=== PATIENT | female | born 1980 | race Caucasian/White ===

== ENCOUNTER → 2016-06-19 | Outpatient (CLI) | payer BC, MEDICARE ==
[~2016-06-19] VITALS: Ht 162.6 cm; Wt 54.0 kg
[~2016-06-19] MED LIST: ACET500T33 PO; CALC0.5C PO; CONTRAST GIVEN MC PRN; HYDR-971 PO; IOHEXOL 300 MG/ML 50 ML VIAL. IART ONE; IOHEXOL 300 MG/ML 50 ML VIAL. ONE; LABE100T3 PO; SENN1TAB70 PO; SODI650T PO
[2016-06-19 10:01] VITALS: BP 152/87
--- NOTE | 2016-06-19 10:26 | PDOC ---
Exam Hose Wrapper Hose Wrapper Jennifer Fabrication Department Supervisor Fabrication Department Supervisor Elaine Garrett Pre-Procedure Diagnosis Pre-Procedure Diagnosis ESRD. Nonfunctioning PDC. Post-Procedure Diagnosis Post-Procedure Diagnosis Same Procedure Performed Procedure Performed Fluoro guided PDC check Type of Anesthesia Type of Anesthesia None Estimated Blood Loss EBL: None Condition of Patient Condition of Patient Syable. No apparent complication. Disposition Disposition Discharge from [facility]. F/u with Renal. Unable to restore function to occluded PDC--cannot flush or aspirate. Full report to follow. SHANNA SHARMA MD Jun 19, 2016 10:26
--- NOTE | 2016-06-19 10:32 | PDOC1 ---
History and Physical Date of Procedure Date of Admission 06/19/16 Procedure Procedure Fluoro guided PDC check Indication Indication ESRD. Nonfunctioning PDC Past Medical History Past Medical History See Nursing pre procedure PMH Past Surgical History Past Surgical History See Nursing Pre procedure PSH Current Medications Current Medications Current Medications Iohexol 50 ml 50 ml STK-MED ONCE .ROUTE ; Start 06/19/16 at 09:35; Stop at 09:36; Status DC Heparin Sodium/ Sodium Chloride 500 ml @ As Directed STK-MED ONCE .ROUTE ; Start 06/19/16 at 09:36; Stop 06/19/16 at 09:37; Status DC Heparin Sodium/ Sodium Chloride 1,000 unit 1X ONCE IART Last administered on t 10:16; Start 06/19/16 at 10:15; Stop 06/19/16 at 10:16; Status DC Iohexol (Omnipaque 300 Mg/ml) 50 ml 1X ONCE IART ; Start 06/19/16 at 10:15; Stop 06/19/16 at 10:16; Status DC Info (Do NOT chart on this entry -- for MONITORING) 1 each PRN DAILY PRN MC SEE COMMENTS; Start 06/19/16 at 10:15; Stop 06/21/16 at 10:14 Active Scripts Active Reported Sodium Bicarbonate 650 Mg Tablet 2 Tab PO BID Allergies Allergies: Coded Allergies: Penicillins (Verified Allergy, Intermediate, Hives, 09/06/15) Physical Exam Vital Signs Vital Signs Date Time Temp Pulse Resp B/P Pulse Ox O2 Delivery O2 Flow Rate FiO2 06/19/16 10:01 97.6 56 14 152/87 100 Room Air 97.6 Lungs: Clear to auscultation Heart: Regular rate Psych/Mental Status: Mental status NL Other PDC in place---no evidence of tunnel infection Assessment Assessment ESRD with nonfunctioning PDC Problems: Plan Plan Fluoro guided PDC check +/- guidewire manipulation SHANNA SHARMA MD Jun 19, 2016 10:32
--- NOTE | 2016-06-19 16:07 | RAD ---
Fluoroscopy guided peritoneal dialysis catheter check Indication: 35-year-old female with end stage renal disease. Her indwelling peritoneal dialysis catheter is not functioning. PDC check has been requested. Fluoroscopy time: 2.9 minutes Kerma-area Product: 5 Gycm2 Contrast material: No contrast could be injected. Anesthesia: None Sterility: All elements of maximal sterile barrier technique, including the use of a cap, mask, sterile gown, sterile gloves, large sterile sheet, appropriate hand hygiene, and 2% chlorhexidine for cutaneous antisepsis (or acceptable alternative antiseptic per current guidelines) were utilized. Procedure: Informed consent was obtained from the patient. She was placed supine on the angiography table. Preliminary fluoroscopic evaluation revealed an intact peritoneal dialysis catheter, coiled in good position, projected over mid pelvis. Right lower quadrant of abdomen was prepped and draped in the usual sterile fashion, utilizing all elements of maximal sterile barrier technique, as described above. Using aseptic technique, an attempt to inject heparinized saline through the peritoneal dialysis catheter was unsuccessful. Likewise, attempts to aspirate through the PDC were unsuccessful. Using aseptic technique, a stiff Glidewire, an Amplatz wire, and a Roadrunner guidewire sequentially introduced through the peritoneal dialysis catheter. However, this guidewire manipulation failed to restore ability to flush or aspirate through the PDC. Patient tolerated the procedure well without apparent complication. A sterile dressing was applied over the peritoneal dialysis catheter. Referring accounting administrative assistant was contacted. Impression: Peritoneal dialysis catheter lies in good position, however, the catheter could neither be flushed nor aspirated. Catheter function could not be restored with guidewire manipulation. Referring accounting administrative assistant was notified.
== END | disposition home or self-care (01) ==
LOC: INTRAD 09:24
PROVIDERS: ATTEND Internal Medicine Nephrology
DX: N18.6 End stage renal disease (principal); I10 Essential (primary) hypertension; Z98.51 Tubal ligation status
CPT/HCPCS: 49400; 74190; C1769

== ENCOUNTER 2016-06-23 09:20 | Day surgery (SDC) | payer BC, MEDICARE ==
[~2016-06-23] VITALS: Ht 162.6 cm; Wt 54.4 kg
[~2016-06-23 09:20] MED LIST changes: +BUPIVAC MPF-EPI 0.5%-1:200000 30 ML VIAL. ONE; -CONTRAST GIVEN MC PRN; +FENTANYL PF 100 MCG/2 ML VIAL. IV PRN; +HEPARIN SODIUM 5,000 UNIT in IV NORMAL SALINE 500ML BAG 500 ML IRR ONE; +HYDROMORPHONE 2 MG/ML VIAL. IV PRN; -IOHEXOL 300 MG/ML 50 ML VIAL. IART ONE; -IOHEXOL 300 MG/ML 50 ML VIAL. ONE; +IV RINGERS,LACTATED 1000ML 1,000 ML IV SCH; +LIDOCAINE 1% 1 ML SYRINGE. ID PRN; +MORPHINE SULFATE 2 MG/ML DISP.SYRIN. IV PRN; +NEOMY/BACITR/POLYMYXIN OINT PACKET. TP ONE; +ONDANSETRON PF 4 MG/2 ML VIAL. IV PRN; +PROCHLORPERAZINE 10 MG/2 ML VIAL. IV PRN
[2016-06-23] MEDS ORDERED: FENTANYL PF 100 MCG/2 ML VIAL. ONE (09:38)
[2016-06-23] MEDS ORDERED: MIDAZOLAM HCL/PF 2 MG/2 ML VIAL. ONE (09:38)
[2016-06-23] MEDS ORDERED: LIDOCAINE 2% 100 MG/5 ML SYRINGE. ONE (09:39)
[2016-06-23] MEDS ORDERED: SEVOFLURANE 31 TO 60 MINUTES. IH ONE (09:39)
[2016-06-23] MEDS ORDERED: PROPOFOL 20 ML IV ONE (09:39)
[2016-06-23] MEDS ORDERED: ROCURONIUM 50 MG/5 ML VIAL. ONE (09:39)
[2016-06-23] MEDS ORDERED: ONDANSETRON PF 4 MG/2 ML VIAL. ONE (09:39)
[2016-06-23] MEDS ORDERED: DEXAMETHASONE SOD PHOS 20 MG/5 ML VIAL. ONE (09:39)
[2016-06-23] MEDS ORDERED: MULT1TAB52 PO (10:07)
[2016-06-23 10:29] LABS: BASO # 0.1 x10^3/uL (0.0-0.2); BASO % 1 % (0-3); EOS % 3 % (0-3); HEMATOCRIT 34.7 % (36.0-47.0); HEMOGLOBIN 11.4 g/dL (12.0-15.5); LYMPH # 1.5 x10^3/uL (1.0-4.8); LYMPH % 24 % (24-48); MEAN CORPUSCULAR HEMOGLOBIN 30 pg (25-35); MEAN CORPUSCULAR HGB CONC 33 g/dL (31-37); MEAN CORPUSCULAR VOLUME 90 fL (79-100); MONO % 7 % (0-9); NEUT % 64 % (31-73); PLATELET COUNT 197 x10^3/uL (140-400); RED BLOOD COUNT 3.84 x10^6/uL (3.50-5.40); RED CELL DISTRIBUTION WIDTH 14.8 % (11.5-14.5); WHITE BLOOD COUNT 6.3 x10^3/uL (4.0-11.0)
[2016-06-23] MEDS ORDERED: IV NORMAL SALINE 1000ML BAG 1,000 ML IV SCH (10:30)
[2016-06-23 10:31] LABS: NEG OBC UR NEG; POS OBC UR POS
[2016-06-23 10:42] LABS: CREATININE 7.3 mg/dL (0.6-1.0); GFR 6.4; POTASSIUM 3.8 mmol/L (3.5-5.1)
[2016-06-23] MEDS ORDERED: GLYCOPYRROLATE 1 MG/5 ML VIAL. ONE (12:04)
[2016-06-23] MEDS ORDERED: NEOSTIGMINE METHYLSULFATE 5 MG/5 ML SYRINGE. ONE (12:04)
--- NOTE | 2016-06-23 12:52 | DISCH ---
DISCHARGE INSTRUCTIONS Condition on Discharge Condition on Discharge: Stable Activity After Discharge Activity Instructions for Disc: Activity as tolerated, Avoid exertion Lifting Instructions after Dis: No heavy lifting Driving Instructions after Dis: Do not drive today Diet after Discharge Diet after Discharge: Renal Dialysis Wound Incision Care Wound/Incision Care: Ice to area for comfort, Keep wound/cast CDI Follow-Up Follow up with: Darwin 07/03 ASHWINI MONTERO MD Jun 23, 2016 12:52
--- NOTE | 2016-06-23 12:55 | PDOC ---
BRIEF OPERATIVE NOTE Date: Jun 23, 2016 Pre-Op Diagnosis non functioning PD catheter Post-Op Diagnosis same 2/2 tissue ingrowth Procedure Performed diagnostic laparoscopy, freeing of PD cath Surgeon Darwin Anesthesia Type: General Blood Loss 5cc IV Fluid 400cc Specimens Obtained none Findings tissue ingrowth from right fallopian tube Complications none ASHWINI MONTERO MD Jun 23, 2016 12:55
[2016-06-23] MEDS ORDERED: SENN1TAB71 PO (13:05)
[2016-06-23] MEDS ORDERED: OXYC-323 PO (13:06)
[2016-06-23] MEDS ORDERED: OXYCODONE/APAP 5/325 TABLET. PO PRN (13:15)
[2016-06-23 13:45] VITALS: BP 144/95
--- NOTE | 2016-07-05 11:59 | OP ---
DATE OF SURGERY: 06/23/2016 PREOPERATIVE DIAGNOSIS: Non-functioning peritoneal dialysis catheter. POSTOPERATIVE DIAGNOSIS: Non-functioning peritoneal dialysis catheter secondary to tissue ingrowth. PROCEDURE: Diagnostic laparoscopy, freeing of PD cath. SURGEON: Anibal Montero M.D. ANESTHESIA: General. BLOOD LOSS: 5 mL. INTRAVENOUS FLUID: 400. INDICATIONS: The patient is a 35-year-old female with end-stage renal disease on peritoneal dialysis; however, her catheter was not functioning well. She is brought for laparoscopy and possible replacement. OPERATIVE FINDINGS: The Pigtail of the catheter resided in the right lower quadrant of the pelvis and had some ingrowth of an inflammatory tissue from what appeared to be the right fallopian tube. DESCRIPTION OF PROCEDURE: The patient brought to the operating suite, given a general endotracheal anesthetic. Martins catheter placed to dependent drainage. The abdomen prepped and draped in usual sterile fashion. A supraumbilical incision was infiltrated with local anesthetic, sharply incised and a 5 mm Visiport used to gain access into the abdominal cavity. Pneumoperitoneum established. Camera inserted and inspection carried out with results as noted above. No evidence of injury to abdominal contents was found. Two 5 mm ports were placed, one in each lower quadrant under direct vision, lateral manipulation of the catheter. It was delivered up out of the pelvis where was found to be ingrown with some inflammatory tissue originating from the right fallopian tube. This was carefully divided with Harmonic scalpel taking care to avoid injury to the bowel. The catheter was then delivered out of the abdominal wall through the right lower quadrant port site and the contents were removed and the catheter irrigated. It was then replaced into the abdomen and the abdomen was decompressed. The catheter was flushed with 500 mL of normal saline ____ easily and a similar amount drained. Ports were removed. The catheter was "packed" with heparinized saline. Skin incisions closed with subcuticular 4-0 Monocryl. Steri-Strips and sterile dressings applied. The patient was awakened from her anesthetic and taken to the recovery room after removing her Martins. She was in stable condition. ANIBAL MONTERO MD DR: ALMA/lewis JOB#: [id number] / [id number] Anup Ahumada
== END 2016-06-23 13:52 | disposition home or self-care (01) ==
LOC: SURG 09:20
PROVIDERS: ATTEND Surgery
DX: T85.691A Other mechanical complication of intraperitoneal dialysis catheter, initial encounter (principal); Y83.8 Other surgical procedures as the cause of abnormal reaction of the patient, or of later complication, without mention of misadventure at the time of the procedure; I12.0 Hypertensive chronic kidney disease with stage 5 chronic kidney disease or end stage renal disease; N18.6 End stage renal disease; D64.9 Anemia, unspecified; Z99.2 Dependence on renal dialysis; Z98.51 Tubal ligation status
CPT/HCPCS: 36415; 49324; 80048; 81025; 85027; C1769; J1100; J1956; J2250; J2405; J2704; J2710; J3010; J3490; J7030; J7040

== ENCOUNTER → 2017-06-01 | Outpatient (CLI) | payer BC, MEDICARE ==
[~2017-06-01] MED LIST changes: -ACET500T33 PO; -BUPIVAC MPF-EPI 0.5%-1:200000 30 ML VIAL. ONE; -CALC0.5C PO; -FENTANYL PF 100 MCG/2 ML VIAL. IV PRN; -HEPARIN SODIUM 5,000 UNIT in IV NORMAL SALINE 500ML BAG 500 ML IRR ONE; -HYDR-971 PO; -HYDROMORPHONE 2 MG/ML VIAL. IV PRN; +IOHEXOL 300 MG/ML 100ML VIAL.; -IV RINGERS,LACTATED 1000ML 1,000 ML IV SCH; -LABE100T3 PO; -LIDOCAINE 1% 1 ML SYRINGE. ID PRN; -MORPHINE SULFATE 2 MG/ML DISP.SYRIN. IV PRN; -NEOMY/BACITR/POLYMYXIN OINT PACKET. TP ONE; -ONDANSETRON PF 4 MG/2 ML VIAL. IV PRN; -PROCHLORPERAZINE 10 MG/2 ML VIAL. IV PRN; -SENN1TAB70 PO; -SODI650T PO
[2017-06-01] MEDS: IOHEXOL 300 MG/ML 100ML VIAL. INT CAT (13:51)
== END | disposition home or self-care (01) ==
LOC: INTRAD 12:51
DX: N18.6 End stage renal disease (principal); Z88.0 Allergy status to penicillin; Z90.49 Acquired absence of other specified parts of digestive tract; I10 Essential (primary) hypertension; Z98.51 Tubal ligation status; F17.210 Nicotine dependence, cigarettes, uncomplicated; D64.9 Anemia, unspecified
CPT/HCPCS: 49400; 74190; C1769; Q9967

== ENCOUNTER 2017-06-12 13:05 | Emergency (ER) | payer BC, MEDICARE ==
[2017-06-12 13:51] LABS: URINE HCG POC HCG NEGATIVE (Negative)
[2017-06-12 14:24] LABS: ADD MAN DIFF? NO
[2017-06-12 14:27] LABS: BASO # 0.1 x10^3/uL (0.0-0.2); BASO % 1 % (0-3); EOS # 0.2 x10^3/uL (0.0-0.7); EOS % 3 % (0-3); HEMATOCRIT 34.5 % (36.0-47.0); HEMOGLOBIN 11.1 g/dL (12.0-15.5); LYMPH % 21 % (24-48); MEAN CORPUSCULAR HEMOGLOBIN 29 pg (25-35); MEAN CORPUSCULAR HGB CONC 32 g/dL (31-37); MEAN CORPUSCULAR VOLUME 91 fL (79-100); MONO # 0.7 x10^3/uL (0.0-1.1); MONO % 7 % (0-9); NEUT # 6.6 x10^3uL (1.8-7.7); NEUT % 69 % (31-73); PLATELET COUNT 225 x10^3/uL (140-400); RED BLOOD COUNT 3.82 x10^6/uL (3.50-5.40); RED CELL DISTRIBUTION WIDTH 14.9 % (11.5-14.5); WHITE BLOOD COUNT 9.6 x10^3/uL (4.0-11.0)
[2017-06-12 14:48] LABS: ALBUMIN 3.3 g/dL (3.4-5.0); ALBUMIN/GLOBULIN RATIO 1.1 (1.0-1.7); ALK PHOS 67 U/L (46-116); ALT (SGPT) 18 U/L (14-59); ANION GAP 11 (6-14); AST (SGOT) 14 U/L (15-37); BLOOD UREA NITROGEN 31 mg/dL (7-20); BUN/CREATININE RATIO 5 (6-20); CALCIUM 7.7 mg/dL (8.5-10.1); CARBON DIOXIDE 25 mmol/L (21-32); CHLORIDE 109 mmol/L (98-107); CREATININE 6.8 mg/dL (0.6-1.0); GFR 6.9; GLUCOSE 82 mg/dL (70-99); LIPASE 215 U/L (73-393); SODIUM 145 mmol/L (136-145); TOTAL BILIRUBIN 0.3 mg/dL (0.2-1.0); TOTAL PROTEIN 6.4 g/dL (6.4-8.2)
[2017-06-12 14:50] LABS: POTASSIUM 2.8 mmol/L (3.5-5.1)
[2017-06-12 15:47] LABS: BILIRUBIN,URINE NEGATIVE (NEG); CLARITY,URINE CLEAR; COLOR,URINE YELLOW; GLUCOSE,URINE 250 mg/dL (NEG); NITRITE,URINE NEGATIVE (NEG); PROTEIN,URINE 100 mg/dL (NEG-TRACE); UROBILINOGEN,URINE 0.2 mg/dL (0.2 mg/dL)
[2017-06-12 15:57] LABS: BACTERIA,URINE MODERATE /HPF (0-FEW); RBC,URINE RARE /HPF (0-2); SQUAMOUS EPITHELIAL CELL,UR MANY /LPF; WBC,URINE OCC /HPF (0-4)
== END 2017-06-12 16:55 | disposition home or self-care (01) ==
LOC: ER 13:05
DX: K59.00 Constipation, unspecified (principal); E87.6 Hypokalemia; Z90.49 Acquired absence of other specified parts of digestive tract; Z88.0 Allergy status to penicillin
CPT/HCPCS: 36415; 74176; 80053; 81001; 81025; 83690; 83735; 85025; 87086; 99285-25

== ENCOUNTER 2017-11-05 08:04 | Inpatient (IN) | payer BC, MEDICARE ==
[~2017-11-05] VITALS: Ht 162.6 cm; Wt 52.4 kg
[~2017-11-05 08:04] MED LIST changes: +ACET500T33 PO; +CALC0.5C8 PO; +HYDR-971 PO; +HYOS0.1222 PO; -IOHEXOL 300 MG/ML 100ML VIAL.; +LABE100T5 PO; +MULT1TAB52 PO; +OXYC-323 PO; +SENN1TAB70 PO; +SENN1TAB71 PO; +SODI650T PO
[2017-11-05 09:01] LABS: BILIRUBIN,URINE NEGATIVE (NEG); CLARITY,URINE CLOUDY; COLOR,URINE YELLOW; NITRITE,URINE NEGATIVE (NEG); PH,URINE 5.5; PROTEIN,URINE 100 mg/dL (NEG-TRACE); UROBILINOGEN,URINE 0.2 mg/dL (0.2 mg/dL)
[2017-11-05 09:05] LABS: U PREG PATIENT NEGATIVE (NEG)
[2017-11-05 09:11] LABS: RBC,URINE RARE /HPF (0-2)
[2017-11-05 09:12] LABS: BACTERIA,URINE 0 /HPF (0-FEW); SQUAMOUS EPITHELIAL CELL,UR MANY /LPF; TRICHOMONAS,URINE PRESENT
[2017-11-05 09:15] LABS: BASO # 0.1 x10^3/uL (0.0-0.2); BASO % 1 % (0-3); EOS # 0.1 x10^3/uL (0.0-0.7); EOS % 2 % (0-3); HEMATOCRIT 31.2 % (36.0-47.0); HEMOGLOBIN 10.2 g/dL (12.0-15.5); LYMPH % 14 % (24-48); MEAN CORPUSCULAR HEMOGLOBIN 30 pg (25-35); MEAN CORPUSCULAR HGB CONC 33 g/dL (31-37); MEAN CORPUSCULAR VOLUME 90 fL (79-100); MONO # 0.5 x10^3/uL (0.0-1.1); MONO % 7 % (0-9); NEUT # 5.2 x10^3uL (1.8-7.7); NEUT % 75 % (31-73); PLATELET COUNT 228 x10^3/uL (140-400); RED BLOOD COUNT 3.46 x10^6/uL (3.50-5.40); RED CELL DISTRIBUTION WIDTH 15.4 % (11.5-14.5); WHITE BLOOD COUNT 6.9 x10^3/uL (4.0-11.0)
[2017-11-05 09:24] LABS: CALCIUM 8.6 mg/dL (8.5-10.1); GFR 4.9; POTASSIUM 4.5 mmol/L (3.5-5.1)
--- NOTE | 2017-11-05 09:26 | EKG ---
[facility] [address] [place] [address] Test Date: 2017-11-05 Test Time: 08:53:39 Pat Name: PATRICIA FELIX Department: Room: Gender: F Fruit Worker: : 1980 Requested By: ANDREEA PARIS Order Number: [id number] Reading MD: Mao Stanford MD Measurements Intervals [place] Rate: 60 P: -34 HI: 142 QRS: 13 QRSD: 70 T: 31 QT: 416 QTc: 416 Interpretive Statements SINUS RHYTHM Electronically Signed On 11-05-2017 11:00:55 CDT by Mao Stanford MD
[2017-11-05 09:30] LABS: ALBUMIN 3.5 g/dL (3.4-5.0); ALBUMIN/GLOBULIN RATIO 1.3 (1.0-1.7); TOTAL BILIRUBIN 0.3 mg/dL (0.2-1.0); TOTAL PROTEIN 6.3 g/dL (6.4-8.2)
--- NOTE | 2017-11-05 09:30 | RAD ---
CT ABDOMEN PELVIS WO CONTRAST dated 11/05/2017 9:08 AM Indication:..ABDOMINAL PAIN. PREVIOUS 06/12/17. Comparison: No comparison is available. Technique: Contiguous axial imaging the abdomen and pelvis performed without the administration of IV or oral contrast. One or more of the following individualized dose reduction techniques were utilized for this examination: 1. Automated exposure control 2. Adjustment of the mA and/or kV according to patient size 3. Use of iterative reconstruction technique Findings: Limited images of the lung bases are clear. Heart size within normal limits. No pleural or pericardial effusion. Pectus excavatum. Solid abdominal viscera not well evaluated in the absence of contrast material. No apparent attenuation abnormality of the liver or spleen. There is a well-defined low-density focus in the lateral right lobe liver that is most consistent with cysts, stable from prior study. No biliary ductal dilatation. Gallbladder unremarkable. Pancreas, adrenal glands unremarkable. The kidneys appear somewhat atrophic. No calcific stone or hydronephrosis. No inflammatory changes in the perinephric fat. Unopacified GI tract normal in caliber and contour. No focal bowel wall thickening. The appendix is not identified and likely surgically absent. No inflammatory changes in the mesentery. There is a peritoneal dialysis catheter in place with tip coiled at the low pelvis. Small amount of free fluid. No adenopathy. Images of pelvis show nondistended urinary bladder. No pelvic adenopathy. Bone windows show no acute findings. IMPRESSION: 1. No acute abnormality of abdomen or pelvis. 2. Atrophic kidneys consistent with medical renal disease. There is a peritoneal dialysis catheter in place. 3. Small amount of free pelvic fluid. Electronically signed by: Noe Hernandez MD (11/05/2017 9:27 AM) [id number]
--- NOTE | 2017-11-05 09:33 | PHYS DOC ---
Past Medical History Past Medical History: Other Additional Past Medical Histor: Kidney failure Past Surgical History: Appendectomy, Tubal ligation, Other Additional Past Surgical Histo: Peritoneal dialysis shunt Alcohol Use: None Drug Use: None Adult General Chief Complaint Chief Complaint: OTHER COMPLAINTS [facility] HPI Patient is a 37 year old female who presents with uses peritoneal dialysis daily and has noticed blood in the tube. Patient states that she has been constipated since and has used MiraLAX without help. Patient states that Sunday night and Sunday night when she performed the house as her machine would tell her that it was running slow. Patient states that last night when she performed dialysis that he could not drain anything. Patient states that also that when she does use dialysis that it is causes her pelvic pain. She states that she has talked to her nurse and the nurse told her that if blood remains in the dialysis tube and her pain remains that she should come into the ED today. She states that the tube now looks like it starting to clear up a little bit but this morning it was not. Patient states she does produce some urine. She sees urologist Dr. Maciel. Patient has a history of kidney disease of which she is currently on K use top 10 transplant list. Patient rates her pain a 5 out of 10. Patient states she is allergic to penicillin. Patient has history of a tubal, appendectomy and two vaginal births. Review of Systems Review of Systems Constitutional: Denies fever or chills [] Eyes: Denies change in visual acuity, redness, or eye pain [] HENT: Denies nasal congestion or sore throat [] Respiratory: Denies cough or shortness of breath [] Cardiovascular: No additional information not addressed in HPI [] GI: RUQ, RLQ abdominal pain. Peritoneal dialysis tub has blood in it. Denies nausea, vomiting, bloody stools or diarrhea [] : Denies dysuria or hematuria [] Musculoskeletal: Denies back pain or joint pain [] Integument: Denies rash or skin lesions [] Neurologic: Denies headache, focal weakness or sensory changes [] Endocrine: Denies polyuria or polydipsia [] All other systems were reviewed and found to be within normal limits, except as documented in this note. Current Medications Current Medications Current Medications Medications (Trade) Dose Ordered Sig/Daniele Start Time Stop Time Status Last Admin Dose Admin Lactulose (Lactulose) 30 gm 1X STAT 11/05/17 10:15 11/05/17 10:22 DC 11/05/17 10:37 30 GM Metronidazole (Flagyl) 2,000 mg 1X ONCE 11/05/17 10:15 11/05/17 10:16 DC 11/05/17 10:37 2,000 MG Allergies Allergies Allergies Coded Allergies Type Severity Reaction Last Updated Verified Penicillins Allergy Intermediate Hives 06/23/16 Yes Physical Exam Physical Exam Constitutional: Well developed, well nourished, no acute distress, non-toxic appearance. [] HENT: Normocephalic, atraumatic, bilateral external ears normal, oropharynx moist, no oral exudates, nose normal. [] Eyes: PERRLA, EOMI, conjunctiva normal, no discharge. [] Neck: Normal range of motion, no tenderness, supple, no stridor. [] Cardiovascular:Heart rate regular rhythm, no murmur [] Lungs & Thorax: Bilateral breath sounds clear to auscultation [] Abdomen: Bowel sounds normal, soft, RUQ RLQ tenderness, no masses, no pulsatile masses. Peritoneal Tube lower half with blood and upper half with clear fluid.[ ] Skin: Warm, dry, no erythema, no rash. [] Back: No tenderness, no CVA tenderness. [] Extremities: No tenderness, no cyanosis, no clubbing, ROM intact, no edema. [] Neurologic: Alert and oriented X 3, normal motor function, normal sensory function, no focal deficits noted. [] Psychologic: Affect normal, judgement normal, mood normal. [] Current Patient Data Vital Signs Vital Signs Date Time Temp Pulse Resp B/P (MAP) Pulse Ox O2 Delivery O2 Flow Rate FiO2 11/05/17 08:24 97.9 71 16 128/81 (97) 100 Room Air 97.9 Lab Values Laboratory Tests Test 11/05/17 08:15 11/05/17 09:00 Urine Collection Type Unknown Urine Color Yellow Urine Clarity Cloudy Urine pH 5.5 Urine Specific [place] 1.010 Urine Protein 100 mg/dL (NEG-TRACE) Urine Glucose (UA) 250 mg/dL (NEG) Urine Ketones (Stick) Negative mg/dL (NEG) Urine Blood Trace (NEG) Urine Nitrite Negative (NEG) Urine Bilirubin Negative (NEG) Urine Urobilinogen Dipstick 0.2 mg/dL (0.2 mg/dL) Urine Leukocyte Esterase Moderate (NEG) Urine RBC Rare /HPF (0-2) Urine WBC 1-4 /HPF (0-4) Urine Squamous Epithelial Cells Many /LPF Urine Bacteria 0 /HPF (0-FEW) Urine Trichomonas Present Urine Test Negative (NEG) White Blood Count 6.9 x10^3/uL (4.0-11.0) Red Blood Count 3.46 x10^6/uL (3.50-5.40) L Hemoglobin 10.2 g/dL (12.0-15.5) L Hematocrit 31.2 % (36.0-47.0) L Mean Corpuscular Volume 90 fL (79-100) Mean Corpuscular Hemoglobin 30 pg (25-35) Mean Corpuscular Hemoglobin Concent 33 g/dL (31-37) Red Cell Distribution Width 15.4 % (11.5-14.5) H Platelet Count 228 x10^3/uL (140-400) Neutrophils (%) (Auto) 75 % (31-73) H Lymphocytes (%) (Auto) 14 % (24-48) L Monocytes (%) (Auto) 7 % (0-9) Eosinophils (%) (Auto) 2 % (0-3) Basophils (%) (Auto) 1 % (0-3) Neutrophils # (Auto) 5.2 x10^3uL (1.8-7.7) Lymphocytes # (Auto) 1.0 x10^3/uL (1.0-4.8) Monocytes # (Auto) 0.5 x10^3/uL (0.0-1.1) Eosinophils # (Auto) 0.1 x10^3/uL (0.0-0.7) Basophils # (Auto) 0.1 x10^3/uL (0.0-0.2) Sodium Level 140 mmol/L (136-145) Potassium Level 4.5 mmol/L (3.5-5.1) Chloride Level 111 mmol/L (98-107) H Carbon Dioxide Level 17 mmol/L (21-32) L Anion Gap 12 (6-14) Blood Urea Nitrogen 56 mg/dL (7-20) H Creatinine 9.0 mg/dL (0.6-1.0) H Estimated GFR (Cockcroft-Gault) 4.9 BUN/Creatinine Ratio 6 (6-20) Glucose Level 94 mg/dL (70-99) Calcium Level 8.6 mg/dL (8.5-10.1) Total Bilirubin 0.3 mg/dL (0.2-1.0) Aspartate Amino Transferase (AST) 12 U/L (15-37) L Alanine Aminotransferase (ALT) 15 U/L (14-59) Alkaline Phosphatase 105 U/L (46-116) Creatine Kinase 35 U/L (26-192) Troponin I Quantitative < 0.017 ng/mL (0.000-0.055) Total Protein 6.3 g/dL (6.4-8.2) L Albumin 3.5 g/dL (3.4-5.0) Albumin/Globulin Ratio 1.3 (1.0-1.7) Lipase 198 U/L (73-393) Laboratory Tests 11/05/17 09:00 Laboratory Tests 11/05/17 09:00 EKG EKG Sinus Rhythm Interpretation Time: [address] Mata Radiology/Procedures Radiology/Procedures CT abdomen[] Impressions: [facility] [address] [place] [address] IMAGING REPORT Signed PATIENT: PATRICIA FELIX ACCOUNT: [id number] : 1980 LOCATION: ER AGE: 37 SEX: F EXAM STATUS: REG ER ORD. PHYSICIAN: ANDREEA PARIS APRN REASON: abdominal pain PROCEDURE: CT ABDOMEN PELVIS WO CONTRAST CT ABDOMEN PELVIS WO CONTRAST dated 11/05/2017 9:08 AM Indication:..ABDOMINAL PAIN. PREVIOUS 06/12/17. Comparison: No comparison is available. Technique: Contiguous axial imaging the abdomen and pelvis performed without the administration of IV or oral contrast. One or more of the following individualized dose reduction techniques were utilized for this examination: 1. Automated exposure control 2. Adjustment of the mA and/or kV according to patient size 3. Use of iterative reconstruction technique Findings: Limited images of the lung bases are clear. Heart size within normal limits. No pleural or pericardial effusion. Pectus excavatum. Solid abdominal viscera not well evaluated in the absence of contrast material. No apparent attenuation abnormality of the liver or spleen. There is a well-defined low-density focus in the lateral right lobe liver that is most consistent with cysts, stable from prior study. No biliary ductal dilatation. Gallbladder unremarkable. Pancreas, adrenal glands unremarkable. The kidneys appear somewhat atrophic. No calcific stone or hydronephrosis. No inflammatory changes in the perinephric fat. Unopacified GI tract normal in caliber and contour. No focal bowel wall thickening. The appendix is not identified and likely surgically absent. No inflammatory changes in the mesentery. There is a peritoneal dialysis catheter in place with tip coiled at the low pelvis. Small amount of free fluid. No adenopathy. Images of pelvis show nondistended urinary bladder. No pelvic adenopathy. Bone windows show no acute findings. IMPRESSION: 1. No acute abnormality of abdomen or pelvis. 2. Atrophic kidneys consistent with medical renal disease. There is a peritoneal dialysis catheter in place. 3. Small amount of free pelvic fluid. Electronically signed by: Noe Hernandez MD (11/05/2017 9:27 AM) [id number] DICTATED and SIGNED BY: NOE HERNANDEZ MD DATE: 11/05/17 0923 Course & Med Decision Making Course & Med Decision Making Upon examination patient's abdomen is soft without masses but with right upper and right lower abdominal pain and tenderness. Patient denies any urinary symptoms. Patient's peritoneal dialysis tube does have some blood in the lower part of tube but with clear fluid seen in upper half. Patient denies fever, nausea, vomiting. Patient states that she does have some heartburn recently. She rates her pain a 5 out of 10. Patient urine does show trichomonas of which patient will be given 2g Flagyl. Patients ticket collector Dr Maciel is contacted for consult. Dr. Maciel states to have peritoneal fluid culture in to give the patient lactulose dirty milligrams to help with constipation, and the patient should be sent to interventional radiology to see if her peritoneal catheter can be unplugged. Interventional radiology states that they cannot get to the patient until later this evening or possibly in the morning. Patient agrees to be admitted to have interventional radiology unplugged her catheter and to go to surgery if the catheter cannot be him plugged to have a new catheter replaced so that she can have analysis. Patient agrees to this plan of care. Patient is admitted by Dr. PERRIN. [] Dragon Disclaimer Dragon Disclaimer This electronic medical record was generated, in whole or in part, using a voice recognition dictation system. Departure Departure Impression: Primary Impression: Peritoneal dialysis catheter dysfunction Disposition: ADMITTED INPATIENT Admitting Physician: Xie. Cummings Condition: STABLE Referrals: NO PCP (PCP) Problem Qualifiers Primary Impression: Peritoneal dialysis catheter dysfunction Encounter type: initial encounter Qualified Codes: T85.611A - Breakdown ( mechanical) of intraperitoneal dialysis catheter, initial encounter ANDREEA PARIS INDUSTRIAL PSYCHOLOGY PROFESSOR Nov 05, 2017 09:32
[2017-11-05] MEDS ORDERED: metroNIDAZOLE 500 MG TABLET PO ONE (10:15)
[2017-11-05] MEDS ORDERED: LACTULOSE 20 GM/30 ML SOLUTION. PO STA (10:15)
[2017-11-05 11:45] VITALS: BP 125/83
--- NOTE | 2017-11-05 11:56 | PDOC1 ---
History and Physical Date of Admission Date of Admission 11/05/17 Identification/Chief Complaint Chief Complaint pd CATH has bloody fluid, abd pain Source Source: Patient History of Present Illness History of Present Illness HPI Patient is a 37 year old female who presents with uses peritoneal dialysis daily and has noticed blood in the tube. PT HAS been doing PD for a few years, for "proteinuria" with ESRD. Yesterday, she has lower middle abd pain, noticed bloody liquid when she tries to drain the abd fluid and begin PD. She called RENAL NURSE and was told to hold PD and came to ER. no N/V, no fever , chills, still abd pain, achy, intermittent, no radiation. no urination problem. BM usual is every 2-3ds. last BM was last . Past Medical History Past Medical History Other Additional Past Medical Histor: Kidney failure Past Surgical History: Appendectomy, Tubal ligation, Other Additional Past Surgical Histo: Peritoneal dialysis shunt Alcohol Use: None Drug Use: None ED GENERAL TEMPLATE Adult General Chief Complaint Chief Complaint: OTHER COMPLAINTS HPI Renal/: Chronic renal insuff Past Surgical History Past Surgical History: Appendectomy Family History Family History: Hypertension Social History Smoke: No ALCOHOL: none Drugs: None Current Problem List Problem List Problems Medical Problems: (1) Peritoneal dialysis catheter dysfunction Status: Acute Current Medications Current Medications Current Medications Medications (Trade) Dose Ordered Sig/Daniele Start Time Stop Time Status Last Admin Dose Admin Lactulose (Lactulose) 30 gm 1X STAT 11/05/17 10:15 11/05/17 10:22 DC 11/05/17 10:37 30 GM Metronidazole (Flagyl) 2,000 mg 1X ONCE 11/05/17 10:15 11/05/17 10:16 DC 11/05/17 10:37 2,000 MG Allergies Allergies Allergies Coded Allergies Type Severity Reaction Last Updated Verified Penicillins Allergy Intermediate Hives 06/23/16 Yes ROS Review of System CONSTITUTIONAL: No fever or chills EYES: No recent changes SKIN: No rash or itching CARDIOVASCULAR: No chest pain, syncope, palpitations, or edema RESPIRATORY: No SOB or cough GASTROINTESTINAL: No nausea, vomiting or abdominal pain NEUROLOGICAL: No headaches or weakness ENDOCRINE: No cold or heat intolerance GENITOURINARY: No urgency or frequency of urination MUSCULOSKELETAL: No back pain or joint pain LYMPHATICS: No enlarged lymph nodes PSYCHIATRIC: No anxiety or depression Physical Exam Physical Exam GEN.: No apparent distress. Alert and oriented. HEENT: Head is normocephalic, atraumatic NECK: Supple. LUNGS: Clear to auscultation. HEART: RRR, S1, S2 present. Peripheral pulses intact ABDOMEN: Soft, Positive bowel sounds. lower middle abd moderate tenderness. PD cath has pinkish fluid. EXTREMITIES: Without any cyanosis. NEUROLOGIC: Normal speech, normal tone PSYCHIATRIC: Normal affect, normal mood. SKIN: No ulcerations Vitals Vitals Vital Signs Date Time Temp Pulse Resp B/P (MAP) Pulse Ox O2 Delivery O2 Flow Rate FiO2 11/05/17 11:42 64 114/78 (90) 100 11/05/17 08:24 97.9 16 Room Air 97.9 Labs Labs Laboratory Tests Test 11/05/17 08:15 11/05/17 09:00 Urine Collection Type Unknown Urine Color Yellow Urine Clarity Cloudy Urine pH 5.5 Urine Specific [place] 1.010 Urine Protein 100 mg/dL (NEG-TRACE) Urine Glucose (UA) 250 mg/dL (NEG) Urine Ketones (Stick) Negative mg/dL (NEG) Urine Blood Trace (NEG) Urine Nitrite Negative (NEG) Urine Bilirubin Negative (NEG) Urine Urobilinogen Dipstick 0.2 mg/dL (0.2 mg/dL) Urine Leukocyte Esterase Moderate (NEG) Urine RBC Rare /HPF (0-2) Urine WBC 1-4 /HPF (0-4) Urine Squamous Epithelial Cells Many /LPF Urine Bacteria 0 /HPF (0-FEW) Urine Trichomonas Present Urine Test Negative (NEG) White Blood Count 6.9 x10^3/uL (4.0-11.0) Red Blood Count 3.46 x10^6/uL (3.50-5.40) Hemoglobin 10.2 g/dL (12.0-15.5) Hematocrit 31.2 % (36.0-47.0) Mean Corpuscular Volume 90 fL (79-100) Mean Corpuscular Hemoglobin 30 pg (25-35) Mean Corpuscular Hemoglobin Concent 33 g/dL (31-37) Red Cell Distribution Width 15.4 % (11.5-14.5) Platelet Count 228 x10^3/uL (140-400) Neutrophils (%) (Auto) 75 % (31-73) Lymphocytes (%) (Auto) 14 % (24-48) Monocytes (%) (Auto) 7 % (0-9) Eosinophils (%) (Auto) 2 % (0-3) Basophils (%) (Auto) 1 % (0-3) Neutrophils # (Auto) 5.2 x10^3uL (1.8-7.7) Lymphocytes # (Auto) 1.0 x10^3/uL (1.0-4.8) Monocytes # (Auto) 0.5 x10^3/uL (0.0-1.1) Eosinophils # (Auto) 0.1 x10^3/uL (0.0-0.7) Basophils # (Auto) 0.1 x10^3/uL (0.0-0.2) Sodium Level 140 mmol/L (136-145) Potassium Level 4.5 mmol/L (3.5-5.1) Chloride Level 111 mmol/L (98-107) Carbon Dioxide Level 17 mmol/L (21-32) Anion Gap 12 (6-14) Blood Urea Nitrogen 56 mg/dL (7-20) Creatinine 9.0 mg/dL (0.6-1.0) Estimated GFR (Cockcroft-Gault) 4.9 BUN/Creatinine Ratio 6 (6-20) Glucose Level 94 mg/dL (70-99) Calcium Level 8.6 mg/dL (8.5-10.1) Total Bilirubin 0.3 mg/dL (0.2-1.0) Aspartate Amino Transf (AST/SGOT) 12 U/L (15-37) Alanine Aminotransferase (ALT/SGPT) 15 U/L (14-59) Alkaline Phosphatase 105 U/L (46-116) Creatine Kinase 35 U/L (26-192) Troponin I Quantitative < 0.017 ng/mL (0.000-0.055) Total Protein 6.3 g/dL (6.4-8.2) Albumin 3.5 g/dL (3.4-5.0) Albumin/Globulin Ratio 1.3 (1.0-1.7) Lipase 198 U/L (73-393) Laboratory Tests Test 11/05/17 08:15 11/05/17 09:00 Urine Collection Type Unknown Urine Color Yellow Urine Clarity Cloudy Urine pH 5.5 Urine Specific [place] 1.010 Urine Protein 100 mg/dL (NEG-TRACE) Urine Glucose (UA) 250 mg/dL (NEG) Urine Ketones (Stick) Negative mg/dL (NEG) Urine Blood Trace (NEG) Urine Nitrite Negative (NEG) Urine Bilirubin Negative (NEG) Urine Urobilinogen Dipstick 0.2 mg/dL (0.2 mg/dL) Urine Leukocyte Esterase Moderate (NEG) Urine RBC Rare /HPF (0-2) Urine WBC 1-4 /HPF (0-4) Urine Squamous Epithelial Cells Many /LPF Urine Bacteria 0 /HPF (0-FEW) Urine Trichomonas Present Urine Test Negative (NEG) White Blood Count 6.9 x10^3/uL (4.0-11.0) Red Blood Count 3.46 x10^6/uL (3.50-5.40) Hemoglobin 10.2 g/dL (12.0-15.5) Hematocrit 31.2 % (36.0-47.0) Mean Corpuscular Volume 90 fL (79-100) Mean Corpuscular Hemoglobin 30 pg (25-35) Mean Corpuscular Hemoglobin Concent 33 g/dL (31-37) Red Cell Distribution Width 15.4 % (11.5-14.5) Platelet Count 228 x10^3/uL (140-400) Neutrophils (%) (Auto) 75 % (31-73) Lymphocytes (%) (Auto) 14 % (24-48) Monocytes (%) (Auto) 7 % (0-9) Eosinophils (%) (Auto) 2 % (0-3) Basophils (%) (Auto) 1 % (0-3) Neutrophils # (Auto) 5.2 x10^3uL (1.8-7.7) Lymphocytes # (Auto) 1.0 x10^3/uL (1.0-4.8) Monocytes # (Auto) 0.5 x10^3/uL (0.0-1.1) Eosinophils # (Auto) 0.1 x10^3/uL (0.0-0.7) Basophils # (Auto) 0.1 x10^3/uL (0.0-0.2) Sodium Level 140 mmol/L (136-145) Potassium Level 4.5 mmol/L (3.5-5.1) Chloride Level 111 mmol/L (98-107) Carbon Dioxide Level 17 mmol/L (21-32) Anion Gap 12 (6-14) Blood Urea Nitrogen 56 mg/dL (7-20) Creatinine 9.0 mg/dL (0.6-1.0) Estimated GFR (Cockcroft-Gault) 4.9 BUN/Creatinine Ratio 6 (6-20) Glucose Level 94 mg/dL (70-99) Calcium Level 8.6 mg/dL (8.5-10.1) Total Bilirubin 0.3 mg/dL (0.2-1.0) Aspartate Amino Transf (AST/SGOT) 12 U/L (15-37) Alanine Aminotransferase (ALT/SGPT) 15 U/L (14-59) Alkaline Phosphatase 105 U/L (46-116) Creatine Kinase 35 U/L (26-192) Troponin I Quantitative < 0.017 ng/mL (0.000-0.055) Total Protein 6.3 g/dL (6.4-8.2) Albumin 3.5 g/dL (3.4-5.0) Albumin/Globulin Ratio 1.3 (1.0-1.7) Lipase 198 U/L (73-393) VTE Prophylaxis Ordered VTE Prophylaxis Devices: Yes VTE Pharmacological Prophylaxi: No Assessment/Plan Assessment/Plan lower abd pain PD cath has bloody liquid, possible mallocation/malfunction ESRD on PD daily constipation plan: fu with renal no PD yesterday, not sure today Waiting for IR to see the catheter hope Cont PD today or tmr no emergent HD for today cont home meds add stool softner no heparin incase procedure for now abd fluid cx ABNER PERRIN MD Nov 05, 2017 11:56
[2017-11-05] MEDS ORDERED: BISACODYL 10 MG SUPP.RECT. PR PRN (12:00)
[2017-11-05] MEDS ORDERED: traMADol 50 MG TABLET PO PRN (12:00)
[2017-11-05] MEDS ORDERED: oxyCODONE/APAP 5/325 1 TAB TABLET PO PRN (12:00)
[2017-11-05] MEDS ORDERED: MAGNESIUM HYDROXIDE 2,400 MG/30 ML ORAL.SUSP. PO PRN (12:00)
[2017-11-05] MEDS ORDERED: MORPHINE SULFATE 2 MG/ML VIAL. IV PRN (12:00)
[2017-11-05] MEDS ORDERED: ACETAMINOPHEN 325 MG TABLET. PO PRN (12:00)
[2017-11-05] MEDS ORDERED: LACTULOSE 20 GM/30 ML SOLUTION. PO PRN (12:00)
[2017-11-05] MEDS ORDERED: DOCUSATE SODIUM 100 MG CAPSULE. PO PRN (12:00)
[2017-11-05] MEDS ORDERED: VENL37.57 PO (13:00)
[2017-11-05] MEDS ORDERED: CALC0.256 PO (13:02)
[2017-11-05] MEDS ORDERED: FURO80TA3 PO (13:02)
[2017-11-05] MEDS ORDERED: LISI10TA2 PO (13:02)
[2017-11-05] MEDS: DOCUSATE SODIUM 100 MG CAPSULE. PO SCH ×2 (13:11→20:10)
[2017-11-05] MEDS: MULTIVITAMIN with MINERAL TABLET. PO SCH (13:11)
[2017-11-05] MEDS: SODIUM BICARBONATE 650 MG TABLET. PO SCH ×2 (13:11→20:10)
[2017-11-05] MEDS ORDERED: INFLUENZA VAX SCREEN BY RX. MC ONE (14:15)
[2017-11-05 15:00] VITALS: BP 109/72
[2017-11-05 19:00] VITALS: BP 105/70
[2017-11-05] MEDS: SENNOSIDES/DOCUSATE 8.6/50MG TABLET. PO SCH (20:10)
[2017-11-05] MEDS ORDERED: SENNOSIDES/DOCUSATE 8.6/50MG TABLET. PO SCH (21:00)
[2017-11-05 23:00] VITALS: BP 109/74
[2017-11-06 03:00] VITALS: BP 108/72
[2017-11-06 07:00] VITALS: BP 110/77
[2017-11-06 07:07] LABS: BASO # 0.1 x10^3/uL (0.0-0.2); BASO % 1 % (0-3); EOS # 0.1 x10^3/uL (0.0-0.7); EOS % 1 % (0-3); HEMATOCRIT 30.8 % (36.0-47.0); LYMPH % 14 % (24-48); MEAN CORPUSCULAR HEMOGLOBIN 29 pg (25-35); MEAN CORPUSCULAR HGB CONC 33 g/dL (31-37); MEAN CORPUSCULAR VOLUME 89 fL (79-100); MONO # 0.4 x10^3/uL (0.0-1.1); MONO % 6 % (0-9); NEUT # 5.8 x10^3uL (1.8-7.7); NEUT % 79 % (31-73); PLATELET COUNT 222 x10^3/uL (140-400); RED BLOOD COUNT 3.45 x10^6/uL (3.50-5.40); RED CELL DISTRIBUTION WIDTH 15.1 % (11.5-14.5); WHITE BLOOD COUNT 7.4 x10^3/uL (4.0-11.0)
[2017-11-06] MEDS ORDERED: HYOSCYAMINE 0.125 MG TAB.RAPDIS PO PRN (07:15)
[2017-11-06 07:23] LABS: CALCIUM 8.4 mg/dL (8.5-10.1); GFR 4.9; POTASSIUM 4.1 mmol/L (3.5-5.1)
[2017-11-06] MEDS: ONDANSETRON PF 4 MG/2 ML VIAL. IV PRN ×2 (07:26→10:37)
[2017-11-06] MEDS ORDERED: IOHEXOL 240 MG/ML 50ML VIAL. ONE (08:48)
[2017-11-06] MEDS: MULTIVITAMIN with MINERAL TABLET. PO SCH (08:53)
[2017-11-06] MEDS: SODIUM BICARBONATE 650 MG TABLET. PO SCH (08:53)
[2017-11-06] MEDS ORDERED: CALCITRIOL 0.25 MCG CAPSULE. PO SCH (09:00)
[2017-11-06] MEDS ORDERED: LISINOPRIL 10 MG TABLET PO SCH (09:00)
[2017-11-06] MEDS ORDERED: LISINOPRIL 10 MG TABLET PO PRN (09:00)
[2017-11-06] MEDS: SENNOSIDES/DOCUSATE 8.6/50MG TABLET. PO SCH (09:00)
[2017-11-06] MEDS ORDERED: VENLAFAXINE XR 37.5 MG CAP.ER.24H. PO SCH (09:00)
[2017-11-06] MEDS: DOCUSATE SODIUM 100 MG CAPSULE. PO SCH (09:00)
[2017-11-06] MEDS ORDERED: IOHEXOL 240 MG/ML 50ML VIAL. IJ ONE (09:30)
[2017-11-06] MEDS ORDERED: CONTRAST GIVEN. MC PRN (09:30)
--- NOTE | 2017-11-06 09:56 | PDOC3 ---
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 Final Diagnosis Problems Medical Problems: (1) Peritoneal dialysis catheter dysfunction Status: Acute Brief Hospital Course Allergies Allergies Coded Allergies Type Severity Reaction Last Updated Verified Penicillins Allergy Intermediate Hives 06/23/16 Yes Vital Signs Vital Signs Date Time Temp Pulse Resp B/P (MAP) Pulse Ox O2 Delivery O2 Flow Rate FiO2 11/06/17 08:00 Room Air 11/06/17 07:00 97.5 67 18 110/77 (88) 97 97.5 Lab Results Laboratory Tests Test 11/05/17 08:15 11/05/17 09:00 11/06/17 06:35 Urine Collection Type Unknown Urine Color Yellow Urine Clarity Cloudy Urine pH 5.5 Urine Specific [place] 1.010 Urine Protein 100 mg/dL (NEG-TRACE) Urine Glucose (UA) 250 mg/dL (NEG) Urine Ketones (Stick) Negative mg/dL (NEG) Urine Blood Trace (NEG) Urine Nitrite Negative (NEG) Urine Bilirubin Negative (NEG) Urine Urobilinogen Dipstick 0.2 mg/dL (0.2 mg/dL) Urine Leukocyte Esterase Moderate (NEG) Urine RBC Rare /HPF (0-2) Urine WBC 1-4 /HPF (0-4) Urine Squamous Epithelial Cells Many /LPF Urine Bacteria 0 /HPF (0-FEW) Urine Trichomonas Present Urine Test Negative (NEG) White Blood Count 6.9 x10^3/uL (4.0-11.0) 7.4 x10^3/uL (4.0-11.0) Red Blood Count 3.46 x10^6/uL (3.50-5.40) 3.45 x10^6/uL (3.50-5.40) Hemoglobin 10.2 g/dL (12.0-15.5) 10.0 g/dL (12.0-15.5) Hematocrit 31.2 % (36.0-47.0) 30.8 % (36.0-47.0) Mean Corpuscular Volume 90 fL (79-100) 89 fL (79-100) Mean Corpuscular Hemoglobin 30 pg (25-35) 29 pg (25-35) Mean Corpuscular Hemoglobin Concent 33 g/dL (31-37) 33 g/dL (31-37) Red Cell Distribution Width 15.4 % (11.5-14.5) 15.1 % (11.5-14.5) Platelet Count 228 x10^3/uL (140-400) 222 x10^3/uL (140-400) Neutrophils (%) (Auto) 75 % (31-73) 79 % (31-73) Lymphocytes (%) (Auto) 14 % (24-48) 14 % (24-48) Monocytes (%) (Auto) 7 % (0-9) 6 % (0-9) Eosinophils (%) (Auto) 2 % (0-3) 1 % (0-3) Basophils (%) (Auto) 1 % (0-3) 1 % (0-3) Neutrophils # (Auto) 5.2 x10^3uL (1.8-7.7) 5.8 x10^3uL (1.8-7.7) Lymphocytes # (Auto) 1.0 x10^3/uL (1.0-4.8) 1.0 x10^3/uL (1.0-4.8) Monocytes # (Auto) 0.5 x10^3/uL (0.0-1.1) 0.4 x10^3/uL (0.0-1.1) Eosinophils # (Auto) 0.1 x10^3/uL (0.0-0.7) 0.1 x10^3/uL (0.0-0.7) Basophils # (Auto) 0.1 x10^3/uL (0.0-0.2) 0.1 x10^3/uL (0.0-0.2) Sodium Level 140 mmol/L (136-145) 136 mmol/L (136-145) Potassium Level 4.5 mmol/L (3.5-5.1) 4.1 mmol/L (3.5-5.1) Chloride Level 111 mmol/L (98-107) 108 mmol/L (98-107) Carbon Dioxide Level 17 mmol/L (21-32) 16 mmol/L (21-32) Anion Gap 12 (6-14) 12 (6-14) Blood Urea Nitrogen 56 mg/dL (7-20) 55 mg/dL (7-20) Creatinine 9.0 mg/dL (0.6-1.0) 9.0 mg/dL (0.6-1.0) Estimated GFR (Cockcroft-Gault) 4.9 4.9 BUN/Creatinine Ratio 6 (6-20) Glucose Level 94 mg/dL (70-99) 102 mg/dL (70-99) Calcium Level 8.6 mg/dL (8.5-10.1) 8.4 mg/dL (8.5-10.1) Total Bilirubin 0.3 mg/dL (0.2-1.0) Aspartate Amino Transf (AST/SGOT) 12 U/L (15-37) Alanine Aminotransferase (ALT/SGPT) 15 U/L (14-59) Alkaline Phosphatase 105 U/L (46-116) Creatine Kinase 35 U/L (26-192) Troponin I Quantitative < 0.017 ng/mL (0.000-0.055) Total Protein 6.3 g/dL (6.4-8.2) Albumin 3.5 g/dL (3.4-5.0) Albumin/Globulin Ratio 1.3 (1.0-1.7) Lipase 198 U/L (73-393) Laboratory Tests Test 11/06/17 06:35 White Blood Count 7.4 x10^3/uL (4.0-11.0) Red Blood Count 3.45 x10^6/uL (3.50-5.40) Hemoglobin 10.0 g/dL (12.0-15.5) Hematocrit 30.8 % (36.0-47.0) Mean Corpuscular Volume 89 fL (79-100) Mean Corpuscular Hemoglobin 29 pg (25-35) Mean Corpuscular Hemoglobin Concent 33 g/dL (31-37) Red Cell Distribution Width 15.1 % (11.5-14.5) Platelet Count 222 x10^3/uL (140-400) Neutrophils (%) (Auto) 79 % (31-73) Lymphocytes (%) (Auto) 14 % (24-48) Monocytes (%) (Auto) 6 % (0-9) Eosinophils (%) (Auto) 1 % (0-3) Basophils (%) (Auto) 1 % (0-3) Neutrophils # (Auto) 5.8 x10^3uL (1.8-7.7) Lymphocytes # (Auto) 1.0 x10^3/uL (1.0-4.8) Monocytes # (Auto) 0.4 x10^3/uL (0.0-1.1) Eosinophils # (Auto) 0.1 x10^3/uL (0.0-0.7) Basophils # (Auto) 0.1 x10^3/uL (0.0-0.2) Sodium Level 136 mmol/L (136-145) Potassium Level 4.1 mmol/L (3.5-5.1) Chloride Level 108 mmol/L (98-107) Carbon Dioxide Level 16 mmol/L (21-32) Anion Gap 12 (6-14) Blood Urea Nitrogen 55 mg/dL (7-20) Creatinine 9.0 mg/dL (0.6-1.0) Estimated GFR (Cockcroft-Gault) 4.9 Glucose Level 102 mg/dL (70-99) Calcium Level 8.4 mg/dL (8.5-10.1) Brief Hospital Course Ms. Tian is a 37 old female who was has been on PD for a year because of proteinuria. Unfortunately her PD catheter got clogged, IR is fixing this if PD catheter flushes fine after intervention then home today with no change in meds Discussed with nephrology and foot orthopedist time less than 30 minutes Discharge Information Condition at Discharge: Improved, Stable Disposition/Orders: D/C to Home Scheduled Calcitriol (Rocaltrol) 0.25 Mcg Capsule, 1 TAB PO DAILY, (Reported) Entered as Reported by: CAROLINE MONREAL on 11/05/17 1302 Last Taken: Unknown Dose on 11/04/17 Last Action: Converted on 11/06/17 0718 by CAROLINE MONREAL Multivitamin (Multivitamins) 1 Each Tablet, 1 TAB PO DAILY, #90 Ref 3 (Reported) Entered as Reported by: JENNIFER CARNEY on 06/23/16 1007 Last Action: Converted on 11/05/17 1150 by ABNER PERRIN MD Sodium Bicarbonate (Sodium Bicarbonate) 650 Mg Tablet, 2 TAB PO BID, #60 Ref 5 ( Reported) Entered as Reported by: JUDD CONCEPCION on 09/03/15 1706 Last Action: Continued on 11/05/17 1150 by ABNER PERRIN MD Venlafaxine Hcl (Venlafaxine Hcl Er) 37.5 Mg Cap.er.24h, 37.5 MG PO DAILY, ( Reported) Entered as Reported by: CAROLINE MONREAL on 11/05/17 1300 Last Taken: Unknown Dose on 11/05/17 Last Action: Converted on 11/06/17717 by CAROLINE MONREAL Scheduled PRN Hyoscyamine Sulfate (Hyoscyamine Sulfate) 0.125 Mg Tab.rapdis, 0.125 MG PO BID PRN for ABDOMINAL PAIN, #10 Prescribed by: THELMA STARR on 06/12/17 1638 Last Action: Continued on 11/06/17717 by CAROLINE MONREAL Lisinopril (Lisinopril) 10 Mg Tablet, 10 MG PO PRN DAILY PRN for ELEVATED BP, SEE COMMENTS, (Reported) Entered as Reported by: CAROLINE MONREAL on 11/05/17 1302 Last Taken: Unknown Dose on 10/31/17 Last Action: Continued on 11/06/17717 by CAROLINE MONREAL Oxycodone/Apap 5-325 (Percocet 5-325 Mg Tablet) 1 Each Tablet, 1 TAB PO Q4HRS PRN for PAIN, #22 Ref 0 (Reported) Entered as Reported by: Arnoldo Smith on 06/23/16 1306 Last Action: Continued on 11/05/17 1150 by ABNER PERRIN MD Miscellaneous Medications Sennosides/Docusate Sodium (Stool Softener Tablet) 1 Each Tablet, 1 EACH PO, ( Reported) Entered as Reported by: Arnoldo Smith on 06/23/16 1305 Last Action: Continued on 11/05/17 1150 by MD JONELLE FISHER CHERRIE Y MD Nov 06, 2017 09:56
--- NOTE | 2017-11-06 10:44 | PDOC2 ---
CONSULT Date of Consult Date of Consult DATE: 11/06/17 TIME: 10:38 Reason for Consult Reason for Consult: ESRD AND NON FUNCTIONING PD CATHETER Referring Physician Referring Physician: JONELLE Identification/Chief Complaint Chief Complaint ABD PAIN, NON FUNCTIONING PD CATHETER AND BLOOD PER PD CATHETER Source Source: Chart review, Patient History of Present Illness Reason for Visit: THIS IS A 37 YR OLD PT WITH ESRD. HAS BEEN ON PD FOR SEVERAL YEARS. CURRENTLY ON THE KIDNEY TX LIST. PRESENTED WITH SOME CONSTIPATION, RECENT STRAINING FOR THIS AND NOW POORLY FUNCTIONING PD CATHETER. SHE HAS ALSO NOTED SOME BLOODY ASPIRATE FROM HER PD CATHETER. SHE DOES CCPD AT HOME AND IS MOSTLY COMPLIANT. CT ABD AND PELVIS WAS WITHOUT ANY ACUTE CHANGES Past Medical History Cardiovascular: HTN GI: Constipation Heme/Onc: Anemia NOS Renal/: Chronic renal failure Endocrine: Hyperparathyroidism Past Surgical History Past Surgical History PD CATHETER Past Surgical History: Appendectomy Family History Family History: Hypertension Social History No ALCOHOL: none Drugs: None Lives: with Family Current Problem List Problem List Problems Medical Problems: (1) Peritoneal dialysis catheter dysfunction Status: Acute Current Medications Current Medications Current Medications Metronidazole (Flagyl) 2,000 mg 1X ONCE PO Last administered on 11/05/17at 10: 37; Start 11/05/17 at 10:15; Stop 11/05/17 at 10:16; Status DC Lactulose (Lactulose) 30 gm 1X STAT PO Last administered on 11/05/17at 10:37; Start 11/05/17 at 10:15; Stop 11/05/17 at 10:22; Status DC Oxycodone/ Acetaminophen (Percocet 5/325) 1 tab PRN Q4HRS PRN PO MODERATE - SEVERE PAIN; Start 11/05/17 at 12:00 Senna/Docusate Sodium (Senna Plus) 1 tab BID PO ; Start 11/05/17 at 21:00 Sodium Bicarbonate (Sodium Bicarbonate) 1,300 mg BID PO Last administered on at 08:53; Start 11/05/17 at 13:00 Multivitamins (Thera M Plus) 1 tab DAILY PO Last administered on 11/06/17at 08: 53; Start 11/05/17 at 13:00 Acetaminophen (Tylenol) 650 mg PRN Q6HRS PRN PO FEVER; Start 11/05/17 at 12:00 Ondansetron HCl (Zofran) 4 mg PRN Q6HRS PRN IV NAUSEA/VOMITING Last administered on 11/06/17at 10:37; Start 11/05/17 at 12:00 Morphine Sulfate (Morphine Sulfate) 2 mg PRN Q2HR PRN IV MODERATE TO SEVERE PAIN; Start 11/05/17 at 12:00 Tramadol HCl (Ultram) 50 mg PRN Q6HRS PRN PO MILD PAIN Last administered on at 22:59; Start 11/05/17 at 12:00 Docusate Sodium (Colace) 100 mg PRN DAILY PRN PO HARD STOOLS; Start 11/05/17 at 12:00 Senna/Docusate Sodium (Senna Plus) 1 tab BID PO ; Start 11/05/17 at 21:00; Status UNV Docusate Sodium (Colace) 100 mg BID PO Last administered on 11/05/17at 13:11; Start 11/05/17 at 13:00 Magnesium Hydroxide (Milk Of Magnesia) 2,400 mg PRN Q12HR PRN PO CONSTIPATION, 1ST CHOICE; Start 11/05/17 at 12:00 Lactulose (Lactulose) 20 gm PRN Q12HR PRN PO CONSTIPATION, 2ND CHOICE; Start at 12:00 Bisacodyl (Dulcolax Supp) 10 mg PRN DAILY PRN [place] CONSTIPATION; Start 11/05/17 at 12:00 Info (Do NOT chart on this placeholder) 1 each 1X ONCE MC ; Start 11/05/17 at 14:15; Stop 11/05/17 at 14:16; Status UNV Hyoscyamine (Anaspaz) 0.125 mg PRN BID PRN PO ABDOMINAL PAIN; Start 11/06/17 at 07:15 Lisinopril (Prinivil) 10 mg DAILY PO ; Start 11/06/17 at 09:00; Stop 11/06/17 at 09:00; Status DC Calcitriol (Rocaltrol) 0.25 mcg DAILY PO Last administered on 11/06/17at 08:54; Start 11/06/17 at 09:00 Venlafaxine HCl (Effexor Xr) 37.5 mg DAILY PO Last administered on 11/06/17at 08 :53; Start 11/06/17 at 09:00 Lisinopril (Prinivil) 10 mg PRN DAILY PRN PO SBP>160; Start 11/06/17 at 09:00 Iohexol (Omnipaque 240 Mg/ml) 50 ml STK-MED ONCE .ROUTE ; Start 11/06/17 at 08: 48; Stop 11/06/17 at 08:49; Status DC Iohexol (Omnipaque 240 Mg/ml) 50 ml 1X ONCE IJ Last administered on 11/06/17at 09:30; Start 11/06/17 at 09:30; Stop 11/06/17 at 09:31; Status DC Info (CONTRAST GIVEN -- Rx MONITORING) 1 each PRN DAILY PRN MC SEE COMMENTS; Start 11/06/17 at 09:30; Stop 11/08/17 at 09:29 Active Scripts Active Hyoscyamine Sulfate 0.125 Mg Tab.rapdis 0.125 Mg PO BID PRN Reported Rocaltrol (Calcitriol) 0.25 Mcg Capsule 1 Tab PO DAILY Lisinopril 10 Mg Tablet 10 Mg PO PRN DAILY PRN Venlafaxine Hcl Er (Venlafaxine Hcl) 37.5 Mg Cap.er.24h 37.5 Mg PO DAILY Percocet 5-325 Mg Tablet (Oxycodone/Acetaminophen) 1 Each Tablet 1 Tab PO Q4HRS PRN Stool Softener Tablet (Sennosides/Docusate Sodium) 1 Each Tablet 1 Each PO Multivitamins (Multivitamin) 1 Each Tablet 1 Tab PO DAILY Sodium Bicarbonate 650 Mg Tablet 2 Tab PO BID Allergies Allergies: Coded Allergies: Penicillins (Verified Allergy, Intermediate, Hives, 06/23/16) ROS Review of System FULL ROS NEGATIVE EXCEPT NOTED IN THE HPI SECTION Physical Exam General: Alert, Oriented X3, Cooperative, No acute distress HEENT: Atraumatic, PERRLA, EOMI, Mucous membr. moist/pink Lungs: Clear to auscultation Heart: Regular rate, Normal S1, Normal S2 Abdomen: Normal bowel sounds, Soft, No tenderness, No masses, Other (PD SITE CLEAN AND DRY) Extremities: No clubbing, No cyanosis Skin: No breakdown Neuro: Normal speech, Cranial nerves 3-12 NL Psych/Mental Status: Mental status NL, Mood NL MUSCULOSKELETAL: No joint tenderness, No deformity, No swelling Vitals VITALS Vital Signs Date Time Temp Pulse Resp B/P (MAP) Pulse Ox O2 Delivery O2 Flow Rate FiO2 8/28/18 08:00 Room Air 11/06/17 07:00 97.5 67 18 110/77 (88) 97 97.5 Labs Labs Laboratory Tests Test 11/05/17 08:15 11/05/17 09:00 11/06/17 06:35 Urine Collection Type Unknown Urine Color Yellow Urine Clarity Cloudy Urine pH 5.5 Urine Specific [place] 1.010 Urine Protein 100 mg/dL (NEG-TRACE) Urine Glucose (UA) 250 mg/dL (NEG) Urine Ketones (Stick) Negative mg/dL (NEG) Urine Blood Trace (NEG) Urine Nitrite Negative (NEG) Urine Bilirubin Negative (NEG) Urine Urobilinogen Dipstick 0.2 mg/dL (0.2 mg/dL) Urine Leukocyte Esterase Moderate (NEG) Urine RBC Rare /HPF (0-2) Urine WBC 1-4 /HPF (0-4) Urine Squamous Epithelial Cells Many /LPF Urine Bacteria 0 /HPF (0-FEW) Urine Trichomonas Present Urine Test Negative (NEG) White Blood Count 6.9 x10^3/uL (4.0-11.0) 7.4 x10^3/uL (4.0-11.0) Red Blood Count 3.46 x10^6/uL (3.50-5.40) 3.45 x10^6/uL (3.50-5.40) Hemoglobin 10.2 g/dL (12.0-15.5) 10.0 g/dL (12.0-15.5) Hematocrit 31.2 % (36.0-47.0) 30.8 % (36.0-47.0) Mean Corpuscular Volume 90 fL (79-100) 89 fL (79-100) Mean Corpuscular Hemoglobin 30 pg (25-35) 29 pg (25-35) Mean Corpuscular Hemoglobin Concent 33 g/dL (31-37) 33 g/dL (31-37) Red Cell Distribution Width 15.4 % (11.5-14.5) 15.1 % (11.5-14.5) Platelet Count 228 x10^3/uL (140-400) 222 x10^3/uL (140-400) Neutrophils (%) (Auto) 75 % (31-73) 79 % (31-73) Lymphocytes (%) (Auto) 14 % (24-48) 14 % (24-48) Monocytes (%) (Auto) 7 % (0-9) 6 % (0-9) Eosinophils (%) (Auto) 2 % (0-3) 1 % (0-3) Basophils (%) (Auto) 1 % (0-3) 1 % (0-3) Neutrophils # (Auto) 5.2 x10^3uL (1.8-7.7) 5.8 x10^3uL (1.8-7.7) Lymphocytes # (Auto) 1.0 x10^3/uL (1.0-4.8) 1.0 x10^3/uL (1.0-4.8) Monocytes # (Auto) 0.5 x10^3/uL (0.0-1.1) 0.4 x10^3/uL (0.0-1.1) Eosinophils # (Auto) 0.1 x10^3/uL (0.0-0.7) 0.1 x10^3/uL (0.0-0.7) Basophils # (Auto) 0.1 x10^3/uL (0.0-0.2) 0.1 x10^3/uL (0.0-0.2) Sodium Level 140 mmol/L (136-145) 136 mmol/L (136-145) Potassium Level 4.5 mmol/L (3.5-5.1) 4.1 mmol/L (3.5-5.1) Chloride Level 111 mmol/L (98-107) 108 mmol/L (98-107) Carbon Dioxide Level 17 mmol/L (21-32) 16 mmol/L (21-32) Anion Gap 12 (6-14) 12 (6-14) Blood Urea Nitrogen 56 mg/dL (7-20) 55 mg/dL (7-20) Creatinine 9.0 mg/dL (0.6-1.0) 9.0 mg/dL (0.6-1.0) Estimated GFR (Cockcroft-Gault) 4.9 4.9 BUN/Creatinine Ratio 6 (6-20) Glucose Level 94 mg/dL (70-99) 102 mg/dL (70-99) Calcium Level 8.6 mg/dL (8.5-10.1) 8.4 mg/dL (8.5-10.1) Total Bilirubin 0.3 mg/dL (0.2-1.0) Aspartate Amino Transf (AST/SGOT) 12 U/L (15-37) Alanine Aminotransferase (ALT/SGPT) 15 U/L (14-59) Alkaline Phosphatase 105 U/L (46-116) Creatine Kinase 35 U/L (26-192) Troponin I Quantitative < 0.017 ng/mL (0.000-0.055) Total Protein 6.3 g/dL (6.4-8.2) Albumin 3.5 g/dL (3.4-5.0) Albumin/Globulin Ratio 1.3 (1.0-1.7) Lipase 198 U/L (73-393) Laboratory Tests Test 11/06/17 06:35 White Blood Count 7.4 x10^3/uL (4.0-11.0) Red Blood Count 3.45 x10^6/uL (3.50-5.40) Hemoglobin 10.0 g/dL (12.0-15.5) Hematocrit 30.8 % (36.0-47.0) Mean Corpuscular Volume 89 fL (79-100) Mean Corpuscular Hemoglobin 29 pg (25-35) Mean Corpuscular Hemoglobin Concent 33 g/dL (31-37) Red Cell Distribution Width 15.1 % (11.5-14.5) Platelet Count 222 x10^3/uL (140-400) Neutrophils (%) (Auto) 79 % (31-73) Lymphocytes (%) (Auto) 14 % (24-48) Monocytes (%) (Auto) 6 % (0-9) Eosinophils (%) (Auto) 1 % (0-3) Basophils (%) (Auto) 1 % (0-3) Neutrophils # (Auto) 5.8 x10^3uL (1.8-7.7) Lymphocytes # (Auto) 1.0 x10^3/uL (1.0-4.8) Monocytes # (Auto) 0.4 x10^3/uL (0.0-1.1) Eosinophils # (Auto) 0.1 x10^3/uL (0.0-0.7) Basophils # (Auto) 0.1 x10^3/uL (0.0-0.2) Sodium Level 136 mmol/L (136-145) Potassium Level 4.1 mmol/L (3.5-5.1) Chloride Level 108 mmol/L (98-107) Carbon Dioxide Level 16 mmol/L (21-32) Anion Gap 12 (6-14) Blood Urea Nitrogen 55 mg/dL (7-20) Creatinine 9.0 mg/dL (0.6-1.0) Estimated GFR (Cockcroft-Gault) 4.9 Glucose Level 102 mg/dL (70-99) Calcium Level 8.4 mg/dL (8.5-10.1) Assessment/Plan Assessment/Plan IMP ESRD NON FUNCTIONING PD CATHETER ABD PAIN HTN CONSTIPATION PLAN IR TO REPAIR PD CATHETER PD CELL COUNT AND DIFF IF PD CATHETER DRAINS WELL THEN WILL D/C LACTULOSE D/W ATTENDING MARIA LUZ DAVILA MD Nov 06, 2017 10:44
[2017-11-06 11:00] VITALS: BP 119/90
[2017-11-06 12:12] LABS: % BASOS 1 % (0-3); % LYMPHS 11 % (24-48); % MONOS 5 % (0-10); % SEGS 83 % (35-66)
[2017-11-06 12:14] LABS: ANISOCYTOSIS SLIGHT; PLT ESTIMATE ADEQUATE (ADEQUATE)
[2017-11-06] MEDS ORDERED: PROCHLORPERAZINE 10 MG/2 ML VIAL. IV PRN (12:15)
[2017-11-06 12:32] VITALS: BP 119/90
[2017-11-06 13:03] LABS: BF CLARITY TURBID; BF COLOR RED; BF SOURCE PERITONEAL
[2017-11-06 13:04] LABS: BF MON % 69 %; BF OTHER % 8 %; BF PMN % 23 %; BF RBC COUNT 92982 /cmm; BF WBC COUNT 414 /cmm
--- NOTE | 2017-11-06 13:04 | PDOC ---
Provider Note Provider Note PD cath not fcning post IR intervention, CAncel dc, consult GS SOme nausea today too ESTEFANI SAL MD Nov 06, 2017 13:04
--- NOTE | 2017-11-06 14:05 | RAD ---
Fluoroscopy guided peritoneal dialysis catheter check 11/06/2017 Indication: 36-year-old female with end stage renal disease. Her indwelling peritoneal dialysis catheter is not functioning. The patient has been experiencing pain, mild blood in the aspirate. PDC check has been requested. Fluoroscopy time: 2.0 minutes Dose area product: 5 Gycm2 Sterility: All elements of maximal sterile barrier technique, including the use of a cap, mask, sterile gown, sterile gloves, large sterile sheet, appropriate hand hygiene, and 2% chlorhexidine for cutaneous antisepsis (or acceptable alternative antiseptic per current guidelines) were utilized. Procedure: Informed consent was obtained from the patient. She was placed supine on the angiography table. Preliminary fluoroscopic evaluation revealed an intact peritoneal dialysis catheter, coiled in good position, projected over mid pelvis. Left lower quadrant of abdomen was prepped and draped in the usual sterile fashion, utilizing all elements of maximal sterile barrier technique, as described above. Using aseptic technique, heparin I saline was administered through the catheter. Flush and was initially sluggish. Aspiration was unsuccessful. A guidewire was manipulated through the PD catheter into the peritoneum. The distal catheter was freely mobile within the peritoneum. Contrast was administered and appeared to freely flow in the peritoneum. Multiple wire manipulations were performed, within the catheter. The catheter was flushed with saline multiple times. Fluid could be aspirated through the catheter, albeit sluggishly. This was not improved with further manipulation. Impression: Peritoneal dialysis catheter lies in good position, the catheter is easily flushed, but following manipulation aspiration remains sluggish. Findings consistent with a fibrin sheath. Catheter function was partially restored manipulation.
[2017-11-06 15:03] VITALS: BP 120/84
--- NOTE | 2017-11-06 16:16 | PDOC2 ---
CONSULT Date of Consult Date of Consult DATE: 11/06/17 TIME: 16:10 Reason for Consult Reason for Consult: poorly draining PD catheter Referring Physician Referring Physician: Dr Maciel Identification/Chief Complaint Chief Complaint ESRD with poorly draining PD catheter Source Source: Chart review, Patient History of Present Illness Reason for Visit: Ambar is a 37 yo female on PD. Recently her catheter has not drained well. She tells me that since IR evaluated it the rate of drainage has improved some. Past Medical History Cardiovascular: HTN GI: Constipation Heme/Onc: Anemia NOS Renal/: Chronic renal failure Endocrine: Hyperparathyroidism Past Surgical History Past Surgical History: Appendectomy, Other (PD catheter placement) Family History Family History: Hypertension Social History No ALCOHOL: none Drugs: None Lives: with Family Current Problem List Problem List Problems Medical Problems: (1) Peritoneal dialysis catheter dysfunction Status: Acute Current Medications Current Medications Current Medications Metronidazole (Flagyl) 2,000 mg 1X ONCE PO Last administered on 11/05/17at 10: 37; Start 11/05/17 at 10:15; Stop 11/05/17 at 10:16; Status DC Lactulose (Lactulose) 30 gm 1X STAT PO Last administered on 11/05/17at 10:37; Start 11/05/17 at 10:15; Stop 11/05/17 at 10:22; Status DC Oxycodone/ Acetaminophen (Percocet 5/325) 1 tab PRN Q4HRS PRN PO MODERATE - SEVERE PAIN; Start 11/05/17 at 12:00 Senna/Docusate Sodium (Senna Plus) 1 tab BID PO ; Start 11/05/17 at 21:00 Sodium Bicarbonate (Sodium Bicarbonate) 1,300 mg BID PO Last administered on at 08:53; Start 11/05/17 at 13:00 Multivitamins (Thera M Plus) 1 tab DAILY PO Last administered on 11/06/17at 08: 53; Start 11/05/17 at 13:00 Acetaminophen (Tylenol) 650 mg PRN Q6HRS PRN PO FEVER; Start 11/05/17 at 12:00 Ondansetron HCl (Zofran) 4 mg PRN Q6HRS PRN IV NAUSEA/VOMITING Last administered on 11/06/17at 10:37; Start 11/05/17 at 12:00 Morphine Sulfate (Morphine Sulfate) 2 mg PRN Q2HR PRN IV MODERATE TO SEVERE PAIN; Start 11/05/17 at 12:00 Tramadol HCl (Ultram) 50 mg PRN Q6HRS PRN PO MILD PAIN Last administered on at 22:59; Start 11/05/17 at 12:00 Docusate Sodium (Colace) 100 mg PRN DAILY PRN PO HARD STOOLS; Start 11/05/17 at 12:00 Senna/Docusate Sodium (Senna Plus) 1 tab BID PO ; Start 11/05/17 at 21:00; Status UNV Docusate Sodium (Colace) 100 mg BID PO Last administered on 11/05/17at 13:11; Start 11/05/17 at 13:00 Magnesium Hydroxide (Milk Of Magnesia) 2,400 mg PRN Q12HR PRN PO CONSTIPATION, 1ST CHOICE; Start 11/05/17 at 12:00 Lactulose (Lactulose) 20 gm PRN Q12HR PRN PO CONSTIPATION, 2ND CHOICE; Start at 12:00 Bisacodyl (Dulcolax Supp) 10 mg PRN DAILY PRN GA CONSTIPATION; Start 11/05/17 at 12:00 Info (Do NOT chart on this placeholder) 1 each 1X ONCE MC ; Start 11/05/17 at 14:15; Stop 11/05/17 at 14:16; Status UNV Hyoscyamine (Anaspaz) 0.125 mg PRN BID PRN PO ABDOMINAL PAIN; Start 11/06/17 at 07:15 Lisinopril (Prinivil) 10 mg DAILY PO ; Start 11/06/17 at 09:00; Stop 11/06/17 at 09:00; Status DC Calcitriol (Rocaltrol) 0.25 mcg DAILY PO Last administered on 11/06/17at 08:54; Start 11/06/17 at 09:00 Venlafaxine HCl (Effexor Xr) 37.5 mg DAILY PO Last administered on 11/06/17at 08 :53; Start 11/06/17 at 09:00 Lisinopril (Prinivil) 10 mg PRN DAILY PRN PO SBP>160; Start 11/06/17 at 09:00 Iohexol (Omnipaque 240 Mg/ml) 50 ml STK-MED ONCE .ROUTE ; Start 11/06/17 at 08: 48; Stop 11/06/17 at 08:49; Status DC Iohexol (Omnipaque 240 Mg/ml) 50 ml 1X ONCE IJ Last administered on 11/06/17at 09:30; Start 11/06/17 at 09:30; Stop 11/06/17 at 09:31; Status DC Info (CONTRAST GIVEN -- Rx MONITORING) 1 each PRN DAILY PRN MC SEE COMMENTS; Start 11/06/17 at 09:30; Stop 11/08/17 at 09:29 Prochlorperazine Edisylate (Compazine) 10 mg PRN Q6HRS PRN IV NAUSEA/VOMITING Last administered on 11/06/17at 12:14; Start 11/06/17 at 12:15 Active Scripts Active Hyoscyamine Sulfate 0.125 Mg Tab.rapdis 0.125 Mg PO BID PRN Reported Rocaltrol (Calcitriol) 0.25 Mcg Capsule 1 Tab PO DAILY Lisinopril 10 Mg Tablet 10 Mg PO PRN DAILY PRN Venlafaxine Hcl Er (Venlafaxine Hcl) 37.5 Mg Cap.er.24h 37.5 Mg PO DAILY Percocet 5-325 Mg Tablet (Oxycodone/Acetaminophen) 1 Each Tablet 1 Tab PO Q4HRS PRN Stool Softener Tablet (Sennosides/Docusate Sodium) 1 Each Tablet 1 Each PO Multivitamins (Multivitamin) 1 Each Tablet 1 Tab PO DAILY Sodium Bicarbonate 650 Mg Tablet 2 Tab PO BID Allergies Allergies: Coded Allergies: Penicillins (Verified Allergy, Intermediate, Hives, 06/23/16) ROS Review of System negative with exception of present complaints Physical Exam General: Alert, Oriented X3, No acute distress HEENT: Atraumatic Lungs: Normal air movement Heart: Regular rate Abdomen: Soft Vitals VITALS Vital Signs Date Time Temp Pulse Resp B/P (MAP) Pulse Ox O2 Delivery O2 Flow Rate FiO2 11/06/17 15:03 98.3 66 18 120/84 (96) 100 Room Air 98.3 Labs Labs Laboratory Tests Test 11/05/17 08:15 11/05/17 09:00 11/06/17 06:35 11/06/17 09:30 Urine Collection Type Unknown Urine Color Yellow Urine Clarity Cloudy Urine pH 5.5 Urine Specific [place] 1.010 Urine Protein 100 mg/dL (NEG-TRACE) Urine Glucose (UA) 250 mg/dL (NEG) Urine Ketones (Stick) Negative mg/dL (NEG) Urine Blood Trace (NEG) Urine Nitrite Negative (NEG) Urine Bilirubin Negative (NEG) Urine Urobilinogen Dipstick 0.2 mg/dL (0.2 mg/dL) Urine Leukocyte Esterase Moderate (NEG) Urine RBC Rare /HPF (0-2) Urine WBC 1-4 /HPF (0-4) Urine Squamous Epithelial Cells Many /LPF Urine Bacteria 0 /HPF (0-FEW) Urine Trichomonas Present Urine Test Negative (NEG) White Blood Count 6.9 x10^3/uL (4.0-11.0) 7.4 x10^3/uL (4.0-11.0) Red Blood Count 3.46 x10^6/uL (3.50-5.40) 3.45 x10^6/uL (3.50-5.40) Hemoglobin 10.2 g/dL (12.0-15.5) 10.0 g/dL (12.0-15.5) Hematocrit 31.2 % (36.0-47.0) 30.8 % (36.0-47.0) Mean Corpuscular Volume 90 fL (79-100) 89 fL (79-100) Mean Corpuscular Hemoglobin 30 pg (25-35) 29 pg (25-35) Mean Corpuscular Hemoglobin Concent 33 g/dL (31-37) 33 g/dL (31-37) Red Cell Distribution Width 15.4 % (11.5-14.5) 15.1 % (11.5-14.5) Platelet Count 228 x10^3/uL (140-400) 222 x10^3/uL (140-400) Neutrophils (%) (Auto) 75 % (31-73) 79 % (31-73) Lymphocytes (%) (Auto) 14 % (24-48) 14 % (24-48) Monocytes (%) (Auto) 7 % (0-9) 6 % (0-9) Eosinophils (%) (Auto) 2 % (0-3) 1 % (0-3) Basophils (%) (Auto) 1 % (0-3) 1 % (0-3) Neutrophils # (Auto) 5.2 x10^3uL (1.8-7.7) 5.8 x10^3uL (1.8-7.7) Lymphocytes # (Auto) 1.0 x10^3/uL (1.0-4.8) 1.0 x10^3/uL (1.0-4.8) Monocytes # (Auto) 0.5 x10^3/uL (0.0-1.1) 0.4 x10^3/uL (0.0-1.1) Eosinophils # (Auto) 0.1 x10^3/uL (0.0-0.7) 0.1 x10^3/uL (0.0-0.7) Basophils # (Auto) 0.1 x10^3/uL (0.0-0.2) 0.1 x10^3/uL (0.0-0.2) Sodium Level 140 mmol/L (136-145) 136 mmol/L (136-145) Potassium Level 4.5 mmol/L (3.5-5.1) 4.1 mmol/L (3.5-5.1) Chloride Level 111 mmol/L (98-107) 108 mmol/L (98-107) Carbon Dioxide Level 17 mmol/L (21-32) 16 mmol/L (21-32) Anion Gap 12 (6-14) 12 (6-14) Blood Urea Nitrogen 56 mg/dL (7-20) 55 mg/dL (7-20) Creatinine 9.0 mg/dL (0.6-1.0) 9.0 mg/dL (0.6-1.0) Estimated GFR (Cockcroft-Gault) 4.9 4.9 BUN/Creatinine Ratio 6 (6-20) Glucose Level 94 mg/dL (70-99) 102 mg/dL (70-99) Calcium Level 8.6 mg/dL (8.5-10.1) 8.4 mg/dL (8.5-10.1) Total Bilirubin 0.3 mg/dL (0.2-1.0) Aspartate Amino Transf (AST/SGOT) 12 U/L (15-37) Alanine Aminotransferase (ALT/SGPT) 15 U/L (14-59) Alkaline Phosphatase 105 U/L (46-116) Creatine Kinase 35 U/L (26-192) Troponin I Quantitative < 0.017 ng/mL (0.000-0.055) Total Protein 6.3 g/dL (6.4-8.2) Albumin 3.5 g/dL (3.4-5.0) Albumin/Globulin Ratio 1.3 (1.0-1.7) Lipase 198 U/L (73-393) Segmented Neutrophils % 83 % (35-66) Lymphocytes % 11 % (24-48) Monocytes % 5 % (0-10) Basophils % 1 % (0-3) Platelet Estimate Adequate (ADEQUATE) Anisocytosis Slight Body Fluid Source Peritoneal Body Fluid Color Red Body Fluid Clarity Turbid Body Fluid Nucleated Cells 414 /cmm Body Fluid Mononuclear WBCs (%) 69 % Body Fluid Polymorphonuclear Cells 23 % Body Fluid Total RBCs Counted 35464 /cmm Body Fluid Other Cells (%) 8 % Laboratory Tests Test 11/06/17 06:35 11/06/17 09:30 White Blood Count 7.4 x10^3/uL (4.0-11.0) Red Blood Count 3.45 x10^6/uL (3.50-5.40) Hemoglobin 10.0 g/dL (12.0-15.5) Hematocrit 30.8 % (36.0-47.0) Mean Corpuscular Volume 89 fL (79-100) Mean Corpuscular Hemoglobin 29 pg (25-35) Mean Corpuscular Hemoglobin Concent 33 g/dL (31-37) Red Cell Distribution Width 15.1 % (11.5-14.5) Platelet Count 222 x10^3/uL (140-400) Neutrophils (%) (Auto) 79 % (31-73) Lymphocytes (%) (Auto) 14 % (24-48) Monocytes (%) (Auto) 6 % (0-9) Eosinophils (%) (Auto) 1 % (0-3) Basophils (%) (Auto) 1 % (0-3) Neutrophils # (Auto) 5.8 x10^3uL (1.8-7.7) Lymphocytes # (Auto) 1.0 x10^3/uL (1.0-4.8) Monocytes # (Auto) 0.4 x10^3/uL (0.0-1.1) Eosinophils # (Auto) 0.1 x10^3/uL (0.0-0.7) Basophils # (Auto) 0.1 x10^3/uL (0.0-0.2) Segmented Neutrophils % 83 % (35-66) Lymphocytes % 11 % (24-48) Monocytes % 5 % (0-10) Basophils % 1 % (0-3) Platelet Estimate Adequate (ADEQUATE) Anisocytosis Slight Sodium Level 136 mmol/L (136-145) Potassium Level 4.1 mmol/L (3.5-5.1) Chloride Level 108 mmol/L (98-107) Carbon Dioxide Level 16 mmol/L (21-32) Anion Gap 12 (6-14) Blood Urea Nitrogen 55 mg/dL (7-20) Creatinine 9.0 mg/dL (0.6-1.0) Estimated GFR (Cockcroft-Gault) 4.9 Glucose Level 102 mg/dL (70-99) Calcium Level 8.4 mg/dL (8.5-10.1) Body Fluid Source Peritoneal Body Fluid Color Red Body Fluid Clarity Turbid Body Fluid Nucleated Cells 414 /cmm Body Fluid Mononuclear WBCs (%) 69 % Body Fluid Polymorphonuclear Cells 23 % Body Fluid Total RBCs Counted 53777 /cmm Body Fluid Other Cells (%) 8 % Assessment/Plan Assessment/Plan slow draining PD catheter, somewhat improved offered l/s eval with repostioning/replacing she prefers to postpone any surgical intervention for now and hope for continued improvement in the catheter's function sounds like she would like to go home will follow as needed here, and as outpatient if released Thanks for consult ASHWINI MONTERO MD Nov 06, 2017 16:16
== END 2017-11-06 15:45 | disposition home or self-care (01) | DRG 919 ==
LOC: ER 08:04 → 5 SOUTH 10:25
PROVIDERS: ADMIT Internal Medicine; ATTEND Internal Medicine
PROC: 0WHG33Z Insertion of Infusion Device into Peritoneal Cavity, Percutaneous Approach (ICD-10-PCS; principal; 2017-11-06)
DX: T85.611A Breakdown (mechanical) of intraperitoneal dialysis catheter, initial encounter (principal); N18.6 End stage renal disease; I12.0 Hypertensive chronic kidney disease with stage 5 chronic kidney disease or end stage renal disease; K59.00 Constipation, unspecified; E21.3 Hyperparathyroidism, unspecified; Y84.1 Kidney dialysis as the cause of abnormal reaction of the patient, or of later complication, without mention of misadventure at the time of the procedure; Y92.89 Other specified places as the place of occurrence of the external cause; Z98.51 Tubal ligation status; Z90.49 Acquired absence of other specified parts of digestive tract; Z99.2 Dependence on renal dialysis; Z88.0 Allergy status to penicillin; Z82.49 Family history of ischemic heart disease and other diseases of the circulatory system
CPT/HCPCS: 36415; 49400; 74176; 74190; 80048; 80053; 81001; 81025; 82550; 83690; 84484; 85007; 85025; 87071; 87075; 87086; 89050; 93005; A4215; C1769; J0780; J2405; Q9966; 99285-25